=== PATIENT | male | born 1980 | race Caucasian/White ===

== ENCOUNTER 2017-01-26 20:10 | Emergency (ER) | payer MEDICAID ==
--- NOTE | 2017-01-26 21:06 | EDM.PDOC ---
ED HPI Behavioral Health - General Chief Complaint: Behavioral/Psych Stated Complaint: MENTAL HEALTH/SUICIDAL IDEATION Time Seen by Provider: 01/26/17 20:14 Source of Information: Reports: Patient, Police, RN notes reviewed Exam Limitations: Reports: No limitations - History of Present Illness INITIAL COMMENTS - FREE TEXT/NARRATIVE: The patient is brought to the ED by the police. The police state that the patient's mother called them, saying that the patient had been making some suicidal comments via text messages. He had apparently texted that he would be better off , by "blowing his brains out", and his Mom finding him in the garage. The police pilot stated that he did not actually see any of the text messages, either on the patient's phone or his mother's phone, although he admitted that he had access to the mother's phone if he had wanted to look. The police pilot did not ask if the patient has access to a firearm. The police pilot indicates in his involuntary committal papers that the patient told him that he would be better off if he was gone, however, the patient denies to me feeling suicidal and denies having threatened suicide. He states that he is merely drunk, and that his mother must be crazy. The patient is tearful, and when asked about that, he states that he broke up with his girlfriend of 3 months, yesterday. He immediately tries to downplay the significance of it, disparaging his girlfriend, yet he repeated it many times. The patient admits to being depressed, but adamantly denies feeling suicidal or homicidal. He denies any attempts to harm himself, ever. He states that he was psychiatrically hospitalized in 1997, but cannot say why, exactly. He believes it was related to homelessness and PTSD. The patient states that he is an alcoholic, consuming a 1.75 L bottle of rum every 3 days (this is equivalent to approximately 13 drinks per day). Treatments DISTILLERY WORKER: Reports: Other (see below) Other Treatments DISTILLERY WORKER: [facility] will be putting patient on involuntary committal - Related Data Allergies Allergy/AdvReac Type Severity Reaction Status Date / Time No Known Allergies Allergy Verified 01/26/17 20:23 Home Medications: Home Meds Omeprazole [Omeprazole] 1 tab PO DAILY 05/01/14 [History] Prednisone [IMW: Prednisone] 10 mg PO DAILY 01/26/17 [History] Past Medical History HEENT History: Reports: Impaired vision (Keratoconus) Gastrointestinal History: Reports: GERD Psychiatric History: Reports: Addiction, Anxiety, Depression - Past Surgical History HEENT Surgical History: Reports: Eye surgery (left cornea transplant) Social & Family History - Family History Family Medical History: Noncontributory - Tobacco Use Smoking Status *Q: Current Every Day Smoker Years of Tobacco use: 15 Packs/Tins Daily: 3 - Caffeine Use Caffeine Use: Reports: Soda - Alcohol Use Alcohol Use History: Yes Days Per Week of Alcohol Use: 7 Number of Drinks Per Day: 13 Total Drinks Per Week: 91 Alcohol Use Frequency: Binges - Recreational Drug Use Recreational Drug Use: Yes Drug Use in Last 12 Months: Yes Recreational Drug Type: Reports: Marijuana/Hashish - Living Situation & Occupation Living situation: Reports: single, with family (Mother) Occupation: unemployed ED ROS GENERAL - Review of Systems Review Of Systems: See Below Constitutional: Reports: no symptoms HEENT: Reports: No symptoms Respiratory: Reports: No Symptoms Cardiovascular: Reports: No symptoms Endocrine: Reports: no symptoms GI/Abdominal: Reports: No symptoms : Reports: no symptoms Musculoskeletal: Reports: no symptoms Skin: Reports: no symptoms Neurological: Reports: No Symptoms Psychiatric: Reports: No symptoms Hematologic/Lymphatic: Reports: no symptoms Immunologic: Reports: no symptoms ED EXAM, BEHAVIORAL HEALTH - Physical Exam Exam: See Below Exam Limited By: Intoxication General Appearance: alert, WD/WN, other (Strong smell of alcohol) Eye Exam: bilateral eye: EOMI Ears: normal external exam, hearing grossly normal Nose: normal inspection, no blood Throat/Mouth: Normal inspection, Normal lips, Normal voice, No airway compromise Head: atraumatic, normocephalic Neck: normal inspection, full range of motion Respiratory/Chest: no respiratory distress, lungs clear, normal breath sounds, no accessory muscle use Cardiovascular: normal peripheral pulses, regular rate, rhythm, no edema, no gallop, no JVD, no murmur, no rub GI/Abdominal: normal bowel sounds, soft, non tender, no organomegaly, no distention, no abnormal bruit, no mass (Male) Exam: Deferred Rectal (Males) Exam: Deferred Back Exam: normal inspection, full range of motion, NT Extremities: normal inspection, normal range of motion, no pedal edema, normal capillary refill Neurological: alert, normal gait, no motor/sensory deficits, oriented x 3, other (Clinically intoxicated, but functional) Psychiatric: alert, tearful, agitated (Angry at the current situation. Does not believe we have the right to hold him.) Skin Exam: Warm, Dry, Intact, Normal color, No rash ( ) EKG INTERPRETATION EKG Date: 01/26/17 Time: 21:11 Rhythm: other (Sinus tachycardia) Rate (beats/min): 117 Welch: normal P-wave: present QRS: normal ST-T: other (J-point elevation V2, V3, V4) QT: normal Comparison: NA - no prior EKG COURSE, BEHAVIORAL HEALTH COMP - Course Vital Signs: Last Vital Signs Temp 37.4 C 01/26/17 20:17 Pulse 132 H 01/26/17 20:17 Resp 20 01/26/17 20:17 BP 139/106 H 01/26/17 20:17 Pulse Ox 99 01/26/17 20:17 Orders, Labs, Meds: Active Orders 24 hr Category Date Time Status EKG Documentation Completion [RC] STAT Care 01/26/17 20:55 Active Laboratory Tests 01/26/17 01/26/17 01/26/17 Range/Units 22:04 22:35 22:35 WBC 5.75 (4.23-9.07) K/mm3 RBC 5.78 (4.63-6.08) M/mm3 Hgb 18.5 H (13.7-17.5) gm/L Hct 53.8 H (40.1-51.0) % MCV 93.1 H (79.0-92.2) fl MCH 32.0 (25.7-32.2) pg MCHC 34.4 (32.2-35.5) g/dl RDW Std Deviation 46.1 H (35.1-43.9) fL Plt Count 173 (163-337) K/mm3 MPV 10.9 (9.4-12.3) fl Neutrophils % (Manual) 63 H (40-60) % Band Neutrophils % 1 (0-10) % Lymphocytes % (Manual) 28 (20-40) % Atypical Lymphs % 0 % Monocytes % (Manual) 8 (2-10) % Eosinophils % (Manual) 0 L (0.8-7.0) % Basophils % (Manual) 0 L (0.2-1.2) Platelet Estimate Adequate Plt Morphology Comment Normal Macrocytosis Few Spherocytes Few RBC Morph Comment Not Reportable Sodium 137 (136-145) mEq/L Potassium 3.4 L (3.5-5.1) mEq/L Chloride 96 L (98-107) mEq/L Carbon Dioxide 30 (21-32) mEq/L Anion Gap 14.4 (5-15) BUN 7 (7-18) mg/dL Creatinine 0.9 (0.7-1.3) mg/dL Est Cr Clr Drug Dosing 119.69 mL/min Estimated GFR (MDRD) > 60 (>60) mL/min BUN/Creatinine Ratio 7.8 L (14-18) Glucose 192 H (74-106) mg/dL Calcium 8.2 L (8.5-10.1) mg/dL Total Bilirubin 0.6 (0.2-1.0) mg/dL AST 119 H (15-37) U/L ALT 119 H (16-63) U/L Alkaline Phosphatase 119 H (46-116) U/L Total Protein 7.5 (6.4-8.2) g/dl Albumin 3.9 (3.4-5.0) g/dl Globulin 3.6 gm/dL Albumin/Globulin Ratio 1.1 (1-2) TSH 3rd Generation 0.340 L (0.358-3.74) uIU/mL Salicylates (2.8-20) mg/dL Urine Opiates Screen Negative (NEGATIVE) Ur Buprenorphine Scrn Negative (NEGATIVE) Ur Oxycodone Screen Negative (NEGATIVE) Urine Methadone Screen Negative (NEGATIVE) Ur Propoxyphene Screen Negative (NEGATIVE) Acetaminophen 0 L (10-30) ug/mL Ur Barbiturates Screen Negative (NEGATIVE) Ur Tricyclics Screen Negative (NEGATIVE) Ur Phencyclidine Scrn Negative (NEGATIVE) Ur Amphetamine Screen Negative (NEGATIVE) U Methamphetamines Scrn Negative (NEGATIVE) U Benzodiazepines Scrn Negative (NEGATIVE) U Cocaine Metab Screen Negative (NEGATIVE) U Marijuana (THC) Screen Negative (NEGATIVE) Ethyl Alcohol 0.30 (0.00) gm% 01/26/17 01/27/17 Range/Units 22:35 05:00 WBC (4.23-9.07) K/mm3 RBC (4.63-6.08) M/mm3 Hgb (13.7-17.5) gm/L Hct (40.1-51.0) % MCV (79.0-92.2) fl MCH (25.7-32.2) pg MCHC (32.2-35.5) g/dl RDW Std Deviation (35.1-43.9) fL Plt Count (163-337) K/mm3 MPV (9.4-12.3) fl Neutrophils % (Manual) (40-60) % Band Neutrophils % (0-10) % Lymphocytes % (Manual) (20-40) % Atypical Lymphs % % Monocytes % (Manual) (2-10) % Eosinophils % (Manual) (0.8-7.0) % Basophils % (Manual) (0.2-1.2) Platelet Estimate Plt Morphology Comment Macrocytosis Spherocytes RBC Morph Comment Sodium (136-145) mEq/L Potassium (3.5-5.1) mEq/L Chloride (98-107) mEq/L Carbon Dioxide (21-32) mEq/L Anion Gap (5-15) BUN (7-18) mg/dL Creatinine (0.7-1.3) mg/dL Est Cr Clr Drug Dosing mL/min Estimated GFR (MDRD) (>60) mL/min BUN/Creatinine Ratio (14-18) Glucose (74-106) mg/dL Calcium (8.5-10.1) mg/dL Total Bilirubin (0.2-1.0) mg/dL AST (15-37) U/L ALT (16-63) U/L Alkaline Phosphatase (46-116) U/L Total Protein (6.4-8.2) g/dl Albumin (3.4-5.0) g/dl Globulin gm/dL Albumin/Globulin Ratio (1-2) TSH 3rd Generation (0.358-3.74) uIU/mL Salicylates 4.0 (2.8-20) mg/dL Urine Opiates Screen (NEGATIVE) Ur Buprenorphine Scrn (NEGATIVE) Ur Oxycodone Screen (NEGATIVE) Urine Methadone Screen (NEGATIVE) Ur Propoxyphene Screen (NEGATIVE) Acetaminophen (10-30) ug/mL Ur Barbiturates Screen (NEGATIVE) Ur Tricyclics Screen (NEGATIVE) Ur Phencyclidine Scrn (NEGATIVE) Ur Amphetamine Screen (NEGATIVE) U Methamphetamines Scrn (NEGATIVE) U Benzodiazepines Scrn (NEGATIVE) U Cocaine Metab Screen (NEGATIVE) U Marijuana (THC) Screen (NEGATIVE) Ethyl Alcohol 0.10 (0.00) gm% Medications Discontinued Medications Generic Name Dose Route Start Last Admin Trade Name Zion PRN Reason Stop Dose Admin Nicotine 21 mg 01/26/17 21:09 01/26/17 21:58 Habitrol TRDERM 01/26/17 21:10 21 mg ONETIME ONE Administration Medical Clearance: 01/26/17 21:06 The patient is refusing a blood draw. 01/27/17 05:36 The patient's alcohol level was 0.30 at 22:35. A repeat alcohol level at 05:00 was 0.10. This is a decline of 0.0369 gm% per hour. At this rate of decline, the patient's alcohol level was 0.08 at 05:32, and will be zero at 07:42. 01/27/17 06:05 The patient was reevaluated. Clinically, he is sober. He states that he does not remember texting his mother anything about being better off . He states that as a convicted felon, he does not have access to any firearms. He states that all of this stems from a recent breakup with his girlfriend that he tried to deal with by drinking, and when his mother came home and found him intoxicated at 3:00 in the afternoon, she flew off the handle. He states that he is not suicidal, and never has been. I am satisfied that the patient is not suicidal. I will discharge him home. Departure - Departure Time of Disposition: 06:07 Disposition: Home, Self-Care 01 Condition: good Clinical Impression: Alcohol intoxication, Alcohol abuse Referrals: PCP,None [Primary Care Provider] - Melissa iSmon NP [Ordering Only Provider] - Forms: ED Department Discharge Additional Instructions: You were brought to the emergency room by the police after making statements that you were suicidal. Workup in the ER included blood work, a urine drug screen, and an ECG. Your initial workup found your blood alcohol level to be substantially elevated at 0.30. At 5:00 this morning, your alcohol level was down to 0.10. Your blood sugar was found to be modestly elevated at 192. This needs further evaluation. Your thyroid-stimulating hormone was found to be slightly low at 0.340. This COULD indicate hyperthyroidism. This test needs to be repeated. While we do not find that you are suicidal, we STRONGLY recommend that you seek professional help regarding your alcohol abuse. Please followup with your PCP, Melissa Simon, at the next available appointment. If any other problems, please do not hesitate to return to the ER. - My Orders Last 24 Hours: My Active Orders 01/26/17 20:55 EKG Documentation Completion [RC] STAT - Assessment/Plan Last 24 Hours: My Active Orders 01/26/17 20:55 EKG Documentation Completion [RC] STAT
[2017-01-26] MEDS ORDERED: Nicotine 21 MG/24 Hr Patch TRDERM ONE (21:09)
[2017-01-26 21:17] VITALS: BP 139/106
[2017-01-26 23:20] LABS: ACETAMINOPHEN 0 ug/mL (10-30)
== END 2017-01-27 06:16 | disposition home or self-care (01) ==
LOC: JD.ED 20:10
DX: F10.129 Alcohol abuse with intoxication, unspecified (principal); K21.9 Gastro-esophageal reflux disease without esophagitis; F41.8 Other specified anxiety disorders; Z98.890 Other specified postprocedural states; Z79.899 Other long term (current) drug therapy; F17.210 Nicotine dependence, cigarettes, uncomplicated
CPT/HCPCS: 36415; 80053; 80306; 84443; 85025; 93005; 99284; A9270; G0480

== ENCOUNTER 2017-03-11 20:30 | Emergency (ER) | payer MEDICAID ==
[2017-03-11 20:40] VITALS: BP 188/99
[2017-03-11] MEDS ORDERED: Acetaminophen/oxyCODONE 325-5 MG Tab PO ONE (20:56)
--- NOTE | 2017-03-11 20:59 | EDM.PDOC ---
ED HPI GENERAL MEDICAL PROBLEM - General Chief Complaint: Upper Extremity Injury/Pain Stated Complaint: SHOULDER INJURY Time Seen by Provider: 03/11/17 20:58 Source of Information: Reports: Patient History Limitations: Reports: No Limitations - History of Present Illness INITIAL COMMENTS - FREE TEXT/NARRATIVE: 36-year-old male presents for evaluation treatment of right shoulder pain. Patient reports that he fell down a flight of stairs on Thursday. He states he did not hit his head lose consciousness. He reports since then he has had severe pain and decreased range of motion to the right shoulder. He also reports bruising to the distal anterior arm. Denies any numbness or tingling to the fingers. He has not taken any Tylenol for the pain. He is unable to take ibuprofen due to gastritis. Patient is right-handed. Location: Reports: Upper Extremity, Right Right Shoulder Pain Score (Numeric/FACES): 10 - Related Data Allergies Allergy/AdvReac Type Severity Reaction Status Date / Time No Known Allergies Allergy Verified 03/11/17 22:09 Home Meds: Home Meds Omeprazole [Omeprazole] 1 tab PO DAILY 05/01/14 [History] Prednisolone [IJD: Prelone 15 MG/5 ML] 1 drop EYELF DAILY 03/11/17 [History] Past Medical History HEENT History: Reports: Impaired Vision Gastrointestinal History: Reports: GERD Psychiatric History: Reports: Addiction, Anxiety, Depression Dermatologic History: Reports: Other (See Below) Other Dermatologic History: skiin lesions to arms bilateral - Past Surgical History HEENT Surgical History: Reports: Eye Surgery, Other (See Below) Other HEENT Surgeries/Procedures: 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 Social & Family History - Family History Family Medical History: Noncontributory - Tobacco Use Smoking Status *Q: Current Every Day Smoker Years of Tobacco use: 22 Packs/Tins Daily: 1 - Caffeine Use Caffeine Use: Reports: Soda - Alcohol Use Days Per Week of Alcohol Use: 7 Number of Drinks Per Day: 13 Total Drinks Per Week: 91 - Recreational Drug Use Recreational Drug Use: No Drug Use in Last 12 Months: Yes Recreational Drug Type: Reports: Marijuana/Hashish - Living Situation & Occupation Living situation: Reports: Single, with Family Occupation: Unemployed Review of Systems - Review of Systems Review Of Systems: See Below Musculoskeletal: Reports: Shoulder Pain (right), Arm Pain (right upper arm) Skin: Reports: Bruising (right distal anterior arm). Denies: Wound Neurological: Denies: Numbness, Tingling ED EXAM, GENERAL - Physical Exam Exam: See Below Exam Limited By: No Limitations General Appearance: Alert, WD/WN, No Apparent Distress Respiratory/Chest: No Respiratory Distress Cardiovascular: Normal Peripheral Pulses, Regular Rate, Rhythm Peripheral Pulses: 2+: Radial (L), Radial (R) Extremities: Normal Inspection (no obvious shoulder dislocation on exam), Normal Capillary Refill, Limited Range of Motion (able to forward flex right shoulder to 20 degrees; unable to extend right shoudler; able to abduct to 30 degrees, unable to adduct right shoulder; ), Other (positive yeagerson's test on right; positive speeds test on right). No: Non-Tender (tenderness to the anterior right humerus mid to proximal; no tenderness to the right scapula or clavicle) Neurological: Alert, Oriented, Normal Cognition Psychiatric: Normal Affect, Normal Mood Skin Exam: Warm, Dry, Ecchymosis (approximately 15 x 10 cm of ecchymosis to the right distal anterior upper arm) Course - Vital Signs Last Recorded V/S: Last Vital Signs Temp 37.4 C 03/11/17 20:37 Pulse 101 H 03/11/17 20:37 Resp 18 03/11/17 20:37 BP 188/99 H 03/11/17 20:37 Pulse Ox 97 03/11/17 20:37 - Orders/Labs/Meds Meds: Medications Discontinued Medications Generic Name Dose Route Start Last Admin Trade Name Freq PRN Reason Stop Dose Admin Oxycodone/Acetaminophen 1 tab 03/11/17 20:56 03/11/17 21:17 Percocet 325-5 Mg PO 03/11/17 20:57 1 tab ONETIME ONE Administration - Radiology Interpretation Free Text/Narrative:: X-ray of the right shoulder and right humerus reviewed by myself and Dr. Barr show no acute fractures or dislocations. - Re-Assessments/Exams Free Text/Narrative Re-Assessment/Exam: 03/11/17 21:52 I reviewed x-ray results with the patient. I am suspicious for a biceps tendon or muscle rupture. We will place him in a sling. Percocet for pain relief. Follow up with orthopedics. Discharge instructions as documented. Departure - Departure Time of Disposition: 21:53 Disposition: Home, Self-Care 01 Condition: fair Clinical Impression: Biceps muscle tear - Discharge Information Instructions: Biceps Tendon Disruption (Proximal) With [facility] Referrals: Melissa Simon NP [Primary Care Provider] - De Pickett MD [Physician] - Forms: ED Department Discharge Additional Instructions: Shoulder sling daily for comfort. Take you arm out of the sling 3 or 4 times a day and perform pendulum circles to reduce your risk of a frozen shoulder. Percocet 1-2 tabs every 4-6 hours as needed for severe pain. Do not drive or operate machinery within 12 hours of taking the Percocet. Percocet can be forming, I recommend you take as few of these as needed to control your pain. Do not take more than 4 g of Tylenol from all sources in one day. Follow up with Dr. Pickett today as soon as you're able to. Call [phone] to schedule with him. Please let them know we suspect you have a tear of the biceps muscle or tendon. Ice the area 4 or 5 times a day for 10-15 minutes. Please return to the ER if your symptoms change or worsen.
--- NOTE | 2017-03-12 06:37 | CR ---
Right shoulder: 3 views of the right shoulder were obtained. Comparison: No previous right shoulder study. Lucent line is identified on one view at the base of the greater tuberosity suspicious for nondisplaced greater tuberosity fracture. Glenohumeral joint and acromioclavicular joints are unremarkable. Impression: 1. Findings suspicious for nondisplaced fracture involving the base of the greater tuberosity. Diagnostic code #3
--- NOTE | 2017-03-12 06:39 | CR ---
Right humerus: 2 views of the right humerus were obtained. Comparison: Shoulder study on same day, no previous exam. Fracture again suspected to the base of the greater tuberosity. No additional fracture or other abnormality is appreciated. Impression: 1. Nondisplaced fracture base of the greater tuberosity is again suspected. 2. Right humerus study is otherwise unremarkable. Diagnostic code #3
== END 2017-03-11 22:10 | disposition home or self-care (01) ==
LOC: JD.ED 20:30
DX: S46.211A Strain of muscle, fascia and tendon of other parts of biceps, right arm, initial encounter (principal); W10.8XXA Fall (on) (from) other stairs and steps, initial encounter; K21.9 Gastro-esophageal reflux disease without esophagitis; F41.8 Other specified anxiety disorders; Z94.7 Corneal transplant status; Z79.899 Other long term (current) drug therapy; F17.210 Nicotine dependence, cigarettes, uncomplicated
CPT/HCPCS: 73030; 73060; 99283; A9270

== ENCOUNTER 2017-10-03 14:11 | Emergency (ER) | payer MEDICAID ==
[2017-10-03 14:31] VITALS: BP 160/104
[2017-10-03] MEDS ORDERED: Cyclobenzaprine 10 MG Tab PO ONE (15:09)
--- NOTE | 2017-10-03 15:15 | EDM.PDOC ---
ED HPI GENERAL MEDICAL PROBLEM - General Chief Complaint: General Stated Complaint: RIB PAIN Time Seen by Provider: 10/03/17 14:29 Source of Information: Reports: Patient History Limitations: Reports: No Limitations - History of Present Illness INITIAL COMMENTS - FREE TEXT/NARRATIVE: patient is a 37-year-old male presents ED complaining of left back pain that radiates along to the front of his chest. Worsen with lifting and also palpation of the back. States a few days ago while laying on the floor he pushed up with his left elbow heard a pop to his back with immediate pain that radiated from his back into the left anterior chest. States over the course of the last week pain has been intermittent up until last night. Pain is quite severe with any movement or taking a deep breath. Took two muscle relaxers Flexeril with immediate relief. Since then he's been experiencing pain to his back with radiation to the left chest. No shortness of breath, no nausea vomiting, no fever, no cough, no hemoptysis,and no other complaints. He is undergoing TMJ treatment with ultrasound and states when his TMJ gets flared up he gets pain radiating down his neck into his back. He has not taken any over- the-counter pain medications. Treatments [employer]ING [employer]: Reports: Other (see below) Other Treatments WE[employer]ING [employer]: advil Left Chest Pain Score (Numeric/FACES): 10 - Related Data Allergies Allergy/AdvReac Type Severity Reaction Status Date / Time No Known Allergies Allergy Verified 03/11/17 22:09 Home Meds: Home Meds Omeprazole [Omeprazole] 1 tab PO DAILY 05/01/14 [History] Prednisolone [IJD: Prelone 15 MG/5 ML] 1 drop EYELF DAILY 03/11/17 [History] Losartan Potassium 100 mg PO DAILY 10/03/17 [History] Orphenadrine [Norflex] 100 mg PO BID PRN #20 tab.er 10/03/17 [Rx] Prednisolone Acetate/Nepafenac [Prednisolone 1%-Nepafenac 0.1%] 1 drop TOP QID 10/03/17 [History] Past Medical History HEENT History: Reports: Impaired Vision Gastrointestinal History: Reports: GERD Psychiatric History: Reports: Addiction, Anxiety, Depression Dermatologic History: Reports: Other (See Below) Other Dermatologic History: skiin lesions to arms bilateral - Past Surgical History HEENT Surgical History: Reports: Eye Surgery, Other (See Below) Other HEENT Surgeries/Procedures: 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 Social & Family History - Family History Family Medical History: Noncontributory - Tobacco Use Smoking Status *Q: Current Every Day Smoker Years of Tobacco use: 24 Packs/Tins Daily: 1.5 - Caffeine Use Caffeine Use: Reports: Coffee - Alcohol Use Days Per Week of Alcohol Use: 7 Number of Drinks Per Day: 13 Total Drinks Per Week: 91 - Recreational Drug Use Recreational Drug Use: No Drug Use in Last 12 Months: Yes Recreational Drug Type: Reports: Marijuana/Hashish - Living Situation & Occupation Living situation: Reports: Single, with Family Occupation: Unemployed ED ROS GENERAL - Review of Systems Review Of Systems: ROS reveals no pertinent complaints other than HPI. ED EXAM, GENERAL - Physical Exam Exam: See Below Exam Limited By: No Limitations General Appearance: Alert, WD/WN, Mild Distress Ears: Hearing Grossly Normal Nose: Normal Inspection Throat/Mouth: Normal Voice, No Airway Compromise Head: Atraumatic, Normocephalic Neck: Normal Inspection, Supple, Non-Tender, Full Range of Motion. No: Lymphadenopathy (L), Lymphadenopathy (R) Respiratory/Chest: No Respiratory Distress, Lungs Clear, Normal Breath Sounds, No Accessory Muscle Use, Chest Non-Tender Cardiovascular: Normal Peripheral Pulses, Regular Rate, Rhythm, No Murmur Peripheral Pulses: 4+: Radial (L), Radial (R) GI/Abdominal: Normal Bowel Sounds, Soft, Non-Tender, No Organomegaly, No Distention Back Exam: Normal Inspection, Full Range of Motion, Paraspinal Tenderness (pain along the 7 and T8 just lateral of the spine approximately 2 finger widths increased with palpation that radiates all way around to the anterior chest. Pain is sharp in nature.) Neurological: Alert, Oriented, CN II-XII Intact, Normal Cognition, No Motor/ Sensory Deficits Psychiatric: Normal Affect, Normal Mood Skin Exam: Warm, Dry, Intact, Normal Color Course - Vital Signs Last Recorded V/S: Last Vital Signs Temp 98.2 F 10/03/17 14:28 Pulse 86 10/03/17 14:28 Resp 20 10/03/17 14:28 BP 160/104 H 10/03/17 14:28 Pulse Ox 99 10/03/17 14:28 - Orders/Labs/Meds Orders: Active Orders 24 hr Category Date Time Status Chest 1V Frontal [CR] Stat Exams 10/03/17 15:10 Taken Meds: Medications Discontinued Medications Generic Name Dose Route Start Last Admin Trade Name Zion PRN Reason Stop Dose Admin Cyclobenzaprine HCl 10 mg 10/03/17 15:09 10/03/17 15:47 Flexeril PO 10/03/17 15:10 10 mg ONETIME ONE Administration - Re-Assessments/Exams Free Text/Narrative Re-Assessment/Exam: Ordered flexural 10mg by mouth and chest x-ray 1. CXR reviewed with Dr. Street with no acute findings noted. Reassessment, patient is feeling better. States he is much more relaxed. Will discharge home with instructions as documented. Departure - Departure Time of Disposition: 17:01 Disposition: Home, Self-Care 01 Condition: Good Clinical Impression: Chest wall pain Upper back strain Qualifiers: Encounter type: initial encounter Qualified Code(s): S29.012A - Strain of muscle and tendon of back wall of thorax, initial encounter - Discharge Information Prescriptions: Orphenadrine [Norflex] 100 mg PO BID PRN #20 tab.er PRN Reason: Pain (Severe 7-10) Instructions: Chest Wall Pain, [id number], Thoracic Strain, [id number] Referrals: Lisa Arce NP [Primary Care Provider] - Forms: ED Department Discharge Additional Instructions: As discussed will have you take norflex 1 tab twice a day as needed for muscle spasms. Suggest taking tylenol 650 mg every 4 to 6 hrs for pain. Apply warm compresses and ice to the affected area 4 times a day 30 minutes in duration as needed. Refrain from any activities that cause worsening pain. CXR did not reveal any obvious rib fractures. Gentle massage and or manipulation by chiropractor for rib head displaced may help with pain. Again unclear if you have a rib fracture or not. FInal interpretation is pending. Followup with PCP in the next week if symptoms persist. Return to the E.D. For any new or worsening symptoms. - My Orders Last 24 Hours: My Active Orders 10/03/17 15:10 Chest 1V Frontal [CR] Stat - Assessment/Plan Last 24 Hours: My Active Orders 10/03/17 15:10 Chest 1V Frontal [CR] Stat
--- NOTE | 2017-10-06 07:59 | CR ---
Chest: Portable view of the chest was obtained. Comparison: No prior chest x-ray. Heart size and mediastinum are normal. Lungs are clear. Minimal scoliosis is noted within the spine. Impression: 1. Nothing acute is identified on portable chest x-ray. Diagnostic code #2
== END 2017-10-03 17:26 | disposition home or self-care (01) ==
LOC: SUPCPDRO 14:11 → JD.ED 14:11
DX: S29.012A Strain of muscle and tendon of back wall of thorax, initial encounter (principal); F17.210 Nicotine dependence, cigarettes, uncomplicated; Z79.899 Other long term (current) drug therapy; X50.0XXA Overexertion from strenuous movement or load, initial encounter
CPT/HCPCS: 71010; 99283; A9270

== ENCOUNTER 2022-01-20 22:02 | Emergency (ER) | payer BC, MEDICAID ==
[2022-01-20 22:25] VITALS: BP 133/79; PULSE 83
== END 2022-01-21 02:20 | disposition home or self-care (01) ==
LOC: JD.ED 22:02
DX: S06.0X0A Concussion without loss of consciousness, initial encounter (principal); S01.01XA Laceration without foreign body of scalp, initial encounter; F10.129 Alcohol abuse with intoxication, unspecified; K21.9 Gastro-esophageal reflux disease without esophagitis; Z79.899 Other long term (current) drug therapy; Y90.5 Blood alcohol level of 100-119 mg/100 ml
CPT/HCPCS: 12002; 36415; 70450; 70450-26; 72125; 72125-26; 80053; 80307; 85025; 85610; 99284; 99284-25

== ENCOUNTER 2023-10-16 01:21 | Emergency (ER) | payer OTHER ==
[2023-10-16] MEDS ORDERED: Proparacaine 0.5% Ophth Soln 15 ML Bottle EYERT ONE (01:39)
[2023-10-16] MEDS ORDERED: Proparacaine 0.5% Ophth Soln 15 ML Bottle ONE (01:40)
[2023-10-16] MEDS ORDERED: Ondansetron 4 MG Tab.DIS PO ONE (02:53)
[2023-10-16] MEDS ORDERED: Acetaminophen/oxyCODONE 325-5 MG Tab PO ONE (02:53)
[2023-10-16 03:17] VITALS: BP 130/90; PULSE 87
== END 2023-10-16 03:13 ==
LOC: JD.ED 01:21
DX: S05.31XA Ocular laceration without prolapse or loss of intraocular tissue, right eye, initial encounter (principal); J44.9 Chronic obstructive pulmonary disease, unspecified; K21.9 Gastro-esophageal reflux disease without esophagitis; Z79.899 Other long term (current) drug therapy; W22.8XXA Striking against or struck by other objects, initial encounter
CPT/HCPCS: 70486; 99285; A9270; J3490